=== PATIENT | female | born 1985 | race African-American/Black ===

== ENCOUNTER 2017-04-28 03:09 | Emergency (ER) | payer MEDICAID ==
[~2017-04-28] VITALS: Ht 170.2 cm; Wt 91.0 kg
[2017-04-28 03:15] VITALS: BP 132/76
== END 2017-04-28 04:22 | disposition home or self-care (01) ==
LOC: ER 03:09
DX: S43.005A Unspecified dislocation of left shoulder joint, initial encounter (principal); X58.XXXA Exposure to other specified factors, initial encounter; Y93.89 Activity, other specified; Y92.810 Car as the place of occurrence of the external cause
CPT/HCPCS: 73030; 99284; Z7610; A4565